=== PATIENT | male | born 1990 | race Caucasian/White ===

== ENCOUNTER → 2023-06-14 14:43 | Outpatient (CLI) | payer BC, SELFPAY ==
--- NOTE | ~2023-06-14 | XR_ITS ---
XR knee RT 3V DATE: 06/14/2023 14:57 INDICATION: No injury. Knee pain. TECHNIQUE: AP, lateral, sunrise views COMPARISON: None FINDINGS: No fracture or dislocation or joint effusion. No periosteal reaction or bone destruction. J oint spaces are well preserved. No radiopaque intra-articular loose body or chondrocalcinosis. IMPRESSION: Negative Reviewed, dictated and finalized at location L. [employer] IMPRESSION: Negative
== END ==
PROVIDERS: PCP Internal Medicine; Visit Provider Clinical Nurse Specialist
DX: M25.561 Pain in right knee (principal)
CPT/HCPCS: 73562

== ENCOUNTER 2023-06-26 14:05 | Emergency (ER) | payer BC, SELFPAY ==
--- NOTE | 2023-06-26 14:15 | ED.URI ---
HPI - URI/Sore Throat General Chief Complaint: Upper Respiratory Infection Stated Complaint: DRAINAGE/COUGH/HEADACHE/LOSING VOICE Time Seen by Provider: 06/26/23 14:15 Source: patient Mode of arrival: ambulatory Limitations: no limitations History of Present Illness HPI Narrative: Tyler is a 33-year-old male patient presenting to the clinic today with complaints of cough, sore throat, nasal drainage, headache, and losing his voice for over 1 week. He reports he has had a low-grade temperature. MD elicited complaint: fever, cough, sore throat and nasal congestion Related Data Home Medications Medication Instructions Recorded Confirmed loratadine 10 mg tablet (Claritin) 10 mg PO DAILY 09/17/21 06/26/23 Allergies Allergy/AdvReac Type Severity Reaction Status Date / Time egg Allergy Mild Anaphylaxis Verified 06/26/23 14:23 milk Allergy Mild vomiting Verified 06/26/23 14:23 cephalexin Allergy Unknown Rectal Verified 06/26/23 14:23 bleeding Dairy Allergy Mild Vomiting Uncoded 06/26/23 14:23 Review of Systems Review of Systems: Pertinent positives per HPI. Patient denies any fever, chills, rash, visual changes, dizziness, shortness of breath, chest pain, palpitations, nausea, vomiting, diarrhea, constipation, abdominal pain, or any urinary issues. [facility] Past Medical History Medical History Asthma Seasonal allergies Tourettes syndrome Family History Family History Father Hypertension Glaucoma HLD (hyperlipidemia) Mother Patient's mother is in good health Ulcerative colitis Other Family history of cardiovascular disease Social History Social History (Updated 06/14/23 @ 14:20 by Jonah Santo MA) Smoking status: Never smoker Alcohol intake: current Alcohol use details: occasional Substance use: former Substance use type: other Other substance usage details: Edibles Lack of Transportation: No Lack of Food: Never True Current Housing: I Have Housing Concerned About Future Housing: No Difficulty Paying Gas/Electric Bills: No Difficulty Paying for Meds: No Currently Unemployed: No Education: Bachelor's Degree Difficulty w/ Childcare or Family Care: No Comments At the time of my signature, I reviewed and agree with the nursing past medical, surgical, social, and family history. There is no relevant family history pertinent to the patient complaint. Exam Narrative: General: Well-developed, well nourished, in no apparent distress Head: Normocephalic, atraumatic Eyes: Pupils equally round and reactive to light bilaterally, EOM intact, sclera and conjunctive clear, no discharge, lids normal Ears: TMs intact and congested, ear canals clear, no drainage, grossly hearing normal. Nose: Nares patent, clear nasal discharge, severe inflammation with white strain, maxillary and frontal sinus tenderness. Mouth: Oral pharynx without lesions or masses, good dentition, MMM. Neck: Supple, trachea midline, no enlargement of anterior or posterior cervical nodes, no thyroid masses or goiter palpable. Cardio: Regular rate and rhythm, s1 and s2 normal, no murmur appreciated. Resp: Clear to auscultation bilaterally, no rhonchi, rales, wheezing or rubs Course Course Emergency Course: Portions of this record may have been created with voice recognition software. Level of Care: Express Care Visit Vital Signs Vital signs: Vital signs reviewed MDM - URI/Sore Throat MDM Narrative Medical decision making narrative: At the time of visit patient is resting comfortably on the exam table. Patient appears to be nontoxic. Plan: I suspect patient has acute bacterial rhinosinusitis. Prescription for Augmentin and prednisone was sent to the pharmacy. Supportive measures were discussed with the patient and they voiced understanding discharge instructions and ag
[2023-06-26 14:22] VITALS: BP 136/84; PULSE 97; RESP 16; TEMP 36.8; O2SAT 100
== END 2023-06-26 14:57 | disposition home or self-care (01) ==
PROVIDERS: Emergency Provider Nurse Practitioner Family; PCP Internal Medicine
DX: J01.90 Acute sinusitis, unspecified (principal); J45.909 Unspecified asthma, uncomplicated
CPT/HCPCS: 99213; G0463

== ENCOUNTER 2023-08-10 13:30 | Outpatient (RCR) | payer BC, SELFPAY ==
--- NOTE | 2023-06-29 17:02 | OPREHPOC ---
Outpatient Therapy Plan of Care This is a Multidisciplinary Plan of Care that may contain components documented by all disciplines (PT, OT, and ST.) PT Problem 1 PT Problem #1 Knowledge Deficit PT Goal 1 Goal Pt to be IND with issued HEP Target Visit 6 PT Problem 2 PT Problem #2 Pain PT Goal 1 Goal Pt to report knee pain no greater than 3/10 with return to activity. Target Visit 6 PT Goal 2 Goal Pt to report 75% improvement in overall symptoms Target Visit 6 PT Problem 3 PT Problem #3 Impaired Strength PT Goal 1 Goal Pt to demonstrate 10 partial range mini squats without increased valgus Target Visit 6 PT Goal 2 Goal Pt to demonstrate a functional lift and carry with 30lb without an increase in pain Target Visit 6
--- NOTE | 2023-06-29 17:02 | PTOPEVAL1 ---
Assessment and note entered by Yakov Bass, PT, DPT Evaluation Information Assessment Status Evaluation Diagnosis R knee pain Onset ~ 9 months Subjective Information Pt states he was playing basketball last year and thinks he came down on his knee the wrong way. He states he initially thought it would get better but it seems like its getting worse. He states the pain is in various places in his knee. He reports pain when going up and down stairs and also reports pain when changing direction. He likes to play pickleball. He never has pain at rest, only with activity. Reported Pain Level Pain Score 0: Self Report Assessment PT Clinical Summary Tyler presents to therapy today for his initial evaluation with a diagnosis of R knee pain. Today he demonstrates decreased functional R quad and glute med strength in comparison to his L side leading to increased R knee valgus in weight bearing positions. He demonstrates compensations during functional squatting and stair navigation. He declines any tenderness to palpation but reports medial knee pain with medial/lateral motions. Skilled therapy services are indicated to address the deficits noted above, to improve stability, and to limit pain with functional activities. Plan of Care Interventions Electrical Stimulation,Gait Training,Hot Pack/Cold Pack,Manual Therapy,Neuro Re-education,Patient/ Caregiver Educati,Therapeutic Activities, Therapeutic Exercise PT Services Indicated Yes Treatment Frequency and 1x/wk for 6 visits Duration These treatments will address the objective and functional deficits as defined above. The patient will be advanced safely and appropriately in order for the patient to progress towards his/her prior level of function. Additional exercises will be introduced and as well as a comprehensive home exercise program upon discharge, if needed, ?to ensure carryover of functional gains achieved in the clinic. This treatment plan has been reviewed and agreement upon by the patient.
--- NOTE | 2023-08-10 14:19 | PTOPDC ---
Assessment and note entered by Yakov Bass, PT, DPT Evaluation Information Assessment Status discharge Diagnosis R knee pain Onset ~ 9 months Subjective Information Pt states it feels like his knee is getting better but not completely better. He has been intermittent compliance with d/t life stresses. Pt states it feels like his knee is getting stronger but still not where he needs it to do the things he like to do without pain. He states walking feels great but he still has some difficulty with stairs when he is holding his daughter. Reported Pain Level Pain Score 0: Self Report Assessment PT Clinical Summary Tyler presents to therapy today for his progress report following 6 visits of skilled therapy to treat his R knee pain. Today he demonstrates improved hip and knee stability during functional movement assessment. He is making good progress towards his therapy goals. He will be discharged at this time to continue his HEP. Plan of Care PT Services Indicated No
== END 2023-08-10 14:33 | disposition home or self-care (01) ==
LOC: ANHGOSHPT 13:30
PROVIDERS: PCP Internal Medicine; Visit Provider Clinical Nurse Specialist
DX: M25.561 Pain in right knee (principal)
CPT/HCPCS: 97110; 97140; 97161; 97530

== ENCOUNTER 2025-03-05 10:22 | Emergency (ER) | payer BC, SELFPAY ==
[2025-03-05 10:40] VITALS: BP 145/82; PULSE 79; RESP 16; TEMP 36.6; O2SAT 100
--- NOTE | 2025-03-05 10:43 | ED_ITS ---
HPI - URI/Sore Throat General Chief Complaint: Upper Respiratory Infection Stated Complaint: Strep Symptoms Time Seen by Provider: 03/05/25 10:45 Source: patient Mode of arrival: ambulatory Limitations: no limitations History of Present Illness HPI Narrative: Tyler is a 34-year-old male patient presenting to the clinic today with complaints of sore throat x1 day. She reports symptoms started yesterday. Has taken Cepacol cough drop and taken Tylenol for his pain. States his family is sick with strep at home and everyone is on antibiotics. Denies any chest pain or shortness of breath. Denies any nasal congestion. Related Data Home Medications ?Medication ?Instructions ?Recorded ?Confirmed ?Last Taken ?Type levocetirizine 5 mg tablet (Xyzal) 5 mg PO DAILY 02/2702/27/25 Unknown History Allergies Allergy/AdvReac Type Severity Reaction Status Date / Time egg Allergy Mild Anaphylaxis Verified 03/05/25 10:53 milk Allergy Mild vomiting Verified 03/05/25 10:53 cephalexin Allergy Unknown Rectal Verified 03/05/25 10:53 bleeding Dairy Allergy Mild Vomiting Uncoded 02/27/25 08:00 Review of Systems Review of Systems: Pertinent positives per HPI. Patient denies any fever, chills, rash, headache, visual changes, dizziness, cough, shortness of breath, chest pain, palpitations, nausea, vomiting, diarrhea, constipation, abdominal pain, or any urinary issues. [facility] Past Medical History Medical History Asthma Tourettes syndrome Seasonal allergies Family History Family History Father Hypertension Glaucoma HLD (hyperlipidemia) Mother Patient's mother is in good health Ulcerative colitis Other Family history of cardiovascular disease Social History Social History Smoking status: Never smoker Alcohol intake: current Alcohol use details: occasional Substance use: former Substance use type: other Other substance usage details: Edibles Lack of Transportation: No Lack of Food: Never True Current Housing: I Have Housing Concerned About Future Housing: No Difficulty Paying Gas/Electric Bills: No Difficulty Paying for Meds: No Currently Unemployed: No Education: Bachelor's Degree Difficulty w/ Childcare or Family Care: No Comments At the time of my signature, I reviewed and agree with the nursing past medical, surgical, social, and family history. There is no relevant family history pertinent to the patient complaint. Exam Narrative: General: Well-developed, well nourished, in no apparent distress Head: Normocephalic, atraumatic Eyes: Pupils equally round and reactive to light bilaterally, EOM intact, sclera and conjunctive clear, no discharge, lids normal Ears: TMs intact, bulging, red, ear canals clear, no drainage, grossly hearing normal. Nose: Nares patent, no discharge, no inflammation, no sinus tenderness. Mouth: Oral pharynx red without lesions or masses, good dentition, MMM. Postnasal drip Neck: Supple, trachea midline, no enlargement of anterior or posterior cervical nodes, no thyroid masses or goiter palpable. Cardio: Regular rate and rhythm, s1 and s2 normal, no murmur appreciated. Resp: Clear to auscultation bilaterally, no rhonchi, rales, wheezing or rubs Course Course Emergency Course: Portions of this record may have been created with voice recognition software. Level of Care: Express Care Visit Vital Signs Vital signs: Vital Signs Temperature 36.6 C 03/05/25 10:40 Pulse Rate 79 03/05/25 10:40 Respiratory Rate 16 03/05/25 10:40 Blood Pressure 145/82 H 03/05/25 10:40 Pulse Oximetry 100 03/05/25 10:40 Temperature 36.6 C 03/05/25 10:40 Pulse Rate 79 03/05/25 10:40 Respiratory Rate 16 03/05/25 10:40 Blood Pressure 145/82 H 03/05/25 10:40 Pulse Oximetry 100 03/05/25 10:40 Vital signs reviewed MDM - URI/Sore Throat MDM Narrative Medical decision making narrative: At the time of visit patient is resting comfortably on the exam table. Patient appears to be nontoxic. Complaints of sore throat x1 day. She reports symptoms started yesterday. Has taken Cepacol cough drop and taken Tylenol for his pain. States his family is sick with strep at home and everyone is on antibiotics. Denies any chest pain or shortness of breath. Denies any nasal congestion. On exam patient has bilateral TMs intact, bulging, red, no nasal drainage, oral pharynx red without tonsillar enlargement, no cervical lymphadenopathy, heart rates regular rate and rhythm, lung sounds are clear. Strep test was ordered. Labs: Strep test was negative in the clinic today. We will send strep for culture. Plan: I suspect patient has bilateral otitis media/pharyngitis. Prescription for amoxicillin was sent to the pharmacy. Supportive measures were discussed with the patient and they voiced understanding discharge instructions and agrees to treatment plan. Return precautions reviewed Differential Diagnosis Differential diagnosis: Likely upper respiratory infection, otitis media, sinusitis, viral infection, bronchitis, influenza, pharyngitis and other (COVID) Lab Data Labs: Lab Results 03/05/25 Range/Units 10:51 POC Grp A Strep Screen Negative (Negative) Discharge Plan Discharge Clinical Impression: Bilateral acute otitis media Pharyngitis Qualifiers: Pharyngitis/tonsillitis etiology: unspecified etiology Qualified Code(s): J02.9 - Acute pharyngitis, unspecified Patient Disposition: Home Condition: Stable Instructions: Antibiotic Form, Pharyngitis (ED), Ear Infection (ED) Additional Instructions: Take prescription medications only as prescribed-amoxicillin Increase fluids and stay well hydrated May take Tylenol or motrin as directed on bottle for pain/fever May use Flonase 1 spray in each nare daily May take OTC antihistamines such as Zyrtec or Claritin daily as directed on bottle May apply Vicks vapor rub to chest to open sinuses Sinus rinses for congestion Cepacol spray, cough drops, throat lozenges, warm tea with honey/lemon, gargle salt water to soothe throat BRAT diet for diarrhea Clear liquids x 24 hours then advance as tolerated for nausea/vomiting Go to the ED if you develop a worsening in your condition- high fever not controlled by Tylenol or Motrin, dehydration, weakness, lethargy, shortness of breath, or chest pain. Follow up with your PCP in 3-5 days if symptoms persist. Patient Language: Upper Sorbian Prescriptions: New amoxicillin 875 mg tablet 875 mg PO Q12H 7 Days Qty: 14 0RF No Action albuterol sulfate [ProAir HFA] 90 mcg/actuation HFA aerosol inhaler 2 puff INHALATION Q4-6H PRN (Reason: bronchospasm) Qty: 8.5 1RF levocetirizine [Xyzal] 5 mg tablet 5 mg PO DAILY clonidine HCl 0.1 mg tablet 0.1 mg PO TID Qty: 270 1RF Follow-up/Referrals: Reji Garcia DO [Primary Care Provider, Internal Medicine] Time of Disposition: 10:51 Quality NIHSS Nursing Documentation ED NIHSS nursing documentation: reviewed/agree
[2025-03-05 10:53] LABS: EDSTREPNEGPOS1 Negative (Negative)
== END 2025-03-05 11:06 | disposition home or self-care (01) ==
PROVIDERS: Emergency Provider Nurse Practitioner Family; PCP Internal Medicine
DX: H66.93 Otitis media, unspecified, bilateral (principal); J02.9 Acute pharyngitis, unspecified
CPT/HCPCS: 87880; 99213; G0463